=== PATIENT | female | born 1990 | race Caucasian/White ===

== ENCOUNTER 2021-01-19 19:46 | Emergency (ER) | payer BC ==
[~2021-01-19 19:46] MED LIST: COLACE100 MG PO; NORCO 10-325 T1 EACH PO
[2021-01-20] MEDS ORDERED: DOXYCYCLINE MO100 MG PO (00:19)
[2021-01-20] MEDS ORDERED: VENTOLIN HFA 66.7 GM INH (00:19)
== END 2021-01-20 01:04 | disposition home or self-care (01) ==
LOC: ER1 19:46
DX: U07.1 COVID-19 (principal); J12.82 Pneumonia due to coronavirus disease 2019; Z88.6 Allergy status to analgesic agent; Z88.1 Allergy status to other antibiotic agents
CPT/HCPCS: 0240U; 71045; 99283

== ENCOUNTER 2022-03-04 20:53 | Emergency (ER) | payer BC ==
[~2022-03-04 20:53] MED LIST changes: +DOXYCYCLINE MO100 MG PO; +VENTOLIN HFA 66.7 GM INH
[2022-03-04 21:56] LABS: HEMOGLOBIN 12.8 gm/dl (12.3-15.3); RED BLOOD COUNT 4.69 M/UL (4.00-5.10)
[2022-03-04 22:15] LABS: BUN/CREATININE RATIO 17 (0-10)
== END 2022-03-05 04:50 | disposition home or self-care (01) ==
LOC: ER1 20:53
PROVIDERS: Emergency Medicine
DX: O20.0 Threatened abortion (principal); Z3A.08 8 weeks gestation of pregnancy
CPT/HCPCS: 76817; 80053; 81001; 84702; 85025; 86850; 86900; 86901; 99284

== ENCOUNTER → 2022-03-06 | Outpatient (CLI) | payer BC | LOC: LAB 16:09 | DX: O20.0 Threatened abortion (principal); Z3A.00 Weeks of gestation of pregnancy not specified | CPT/HCPCS: 36415; 84702 ==

== ENCOUNTER → 2022-03-09 | Outpatient (CLI) | payer BC | LOC: LAB 15:24 | DX: Z53.9 Procedure and treatment not carried out, unspecified reason (principal) | CPT/HCPCS: 36415; 84702 ==

== ENCOUNTER → 2022-04-15 | Outpatient (CLI) | payer BC | LOC: LAB 14:57 | DX: Z32.00 Encounter for pregnancy test, result unknown (principal) | CPT/HCPCS: 36415; 84702 ==

== ENCOUNTER → 2022-04-17 | Outpatient (CLI) | payer BC | LOC: LAB 13:25 | DX: N91.2 Amenorrhea, unspecified (principal) | CPT/HCPCS: 36415; 84702 ==

== ENCOUNTER 2022-07-03 05:51 | Emergency (ER) | payer BC ==
[2022-07-03 06:36] LABS: HEMOGLOBIN 13.9 gm/dl (12.3-15.3); RED BLOOD COUNT 4.64 M/UL (4.00-5.10); WHITE BLOOD COUNT 13.3 K/UL (4.5-11.0)
[2022-07-03 07:23] LABS: BUN/CREATININE RATIO 18 (0-10)
[2022-07-03] MEDS ORDERED: BONJESTA ER 201 EACH PO (08:05)
[2022-07-03] MEDS ORDERED: PHENERGAN 25 MG25 M1 PO (08:13)
== END 2022-07-03 09:18 | disposition home or self-care (01) ==
LOC: ER1 05:51
PROVIDERS: Physician Assistant
DX: O98.512 Other viral diseases complicating pregnancy, second trimester (principal); U07.1 COVID-19; O21.9 Vomiting of pregnancy, unspecified; O99.342 Other mental disorders complicating pregnancy, second trimester; F41.9 Anxiety disorder, unspecified; O99.512 Diseases of the respiratory system complicating pregnancy, second trimester; O99.012 Anemia complicating pregnancy, second trimester; J45.909 Unspecified asthma, uncomplicated; Z3A.16 16 weeks gestation of pregnancy; Z88.6 Allergy status to analgesic agent; Z91.010 Allergy to peanuts
CPT/HCPCS: 80053; 80307; 81001; 83690; 85025; 93005; 96374; 99284; G0480; J2405; U0002